=== PATIENT | male | born 2005 | race Caucasian/White ===

== ENCOUNTER 2024-04-03 03:23 | Emergency (ER) | payer OTHER, SELFPAY ==
[2024-04-03 03:33] VITALS: BP 124/69
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
[2024-04-03] MEDS: AUGMENTIN 875 MG/125 MG 1 TABLET PO (06:24)
== END 2024-04-03 06:41 | disposition home or self-care (01) ==
LOC: EMR 03:23
PROVIDERS: EMERGENCY PHYSICIAN Student in an Organized Health Care Education/Training Program; FAMILY PHYSICIAN Emergency Medicine
DX: S61.233A Puncture wound without foreign body of left middle finger without damage to nail, initial encounter (principal); W45.8XXA Other foreign body or object entering through skin, initial encounter
CPT/HCPCS: 99282

== ENCOUNTER 2025-05-29 21:45 | Emergency (ER) | payer OTHER, SELFPAY ==
[2025-05-29 21:46] VITALS: BP 118/83
[2025-05-30 00:15] VITALS: BMI 23.0
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
[2025-05-30] MEDS: ADACEL 0.5 ML IM (01:41)
[2025-05-30 01:44] VITALS: BP 108/65
== END 2025-05-30 01:45 | disposition home or self-care (01) ==
LOC: EMR 21:45
PROVIDERS: EMERGENCY PHYSICIAN Student in an Organized Health Care Education/Training Program
DX: S01.01XA Laceration without foreign body of scalp, initial encounter (principal); W20.8XXA Other cause of strike by thrown, projected or falling object, initial encounter; R03.0 Elevated blood-pressure reading, without diagnosis of hypertension; Z23 Encounter for immunization
CPT/HCPCS: 99282; 12001; 90471; 90715